=== PATIENT | female | born 1930 | race Caucasian/White ===

== ENCOUNTER → 2016-09-14 | Outpatient (CLI) | payer MEDICARE, BC ==
[~2016-09-14] MED LIST: ACETAMINOPHEN-1 EAC1 PO; AMOXICILLIN500 M1 PO; ASPIRIN LO-DOSE81 MG PO; AUGMENTIN250 MG PO; AUGMENTIN875 MG PO; AYR SALINE NA14.1 GM NOSE; BYSTOLIC5 MG PO; CALCIUM500 MG PO; CIPRO500 MG PO; CITRACAL950 MG PO; COQ-10100 MG PO; COUMADIN ** 9/62 MG PO; CRANBERRY TABL1 EACH PO; CRANBERRY500 M2 PO; DILAUDID 2MG(HYD2 MG PO; FLAXSEED PO; FLORASTOR250 MG PO; IMODIUM2 MG PO; KCL UD LIQ20 MEQ/15 PO; KEPPRA500 MG PO; MAG-OX-400(241400 MG PO; MAGNESIUM250 M1 PO; MELATIN3 MG PO; METAMUCIL FIBE1 EACH PO; MIRALAX17 GM PO; NIASPAN1000 MG PO; NIASPAN500 MG PO; NORCO 5-325 TA1 EACH PO; PHENERGAN25 MG R; PROBIOTIC1 EAC1 PO; QUESTRAN PACKET4 GM PO; RANEXA ER500 MG PO; RYTHMOL SR (SU225 MG PO; RYTHMOL150 MG PO; RYTHMOL225 M1 PO; SYSTANE BALANCE10 ML OPHTH; TOPROL XL25 MG PO; TRIAMCINOLONE454 GM PO; TRIMETHOPRIM100 MG PO; TYLENOL EXTRA500 MG PO; VITAMIN C500 M1 PO; VITAMIN D1000 UNI1 PO; ZOFRAN ODT 4 MG4 MG SL; ZOFRAN4 MG PO; ZOLOFT25 M1 PO; ZOLOFT25 MG PO; [UNRECOGNIZED DRUG - OTHER] PO
[2016-09-14 07:57] LABS: INR - (THERAPEUTIC) 2.7 (0.9-1.1); PROTIME 31.4 SECONDS (9.6-11.1)
== END | disposition disaster alternative care site (69) ==
PROVIDERS: Internal Medicine Interventional Cardiology
DX: I48.91 Unspecified atrial fibrillation (principal)